=== PATIENT | male | born 1985 | race Caucasian/White ===

== ENCOUNTER 2019-03-22 16:36 | Emergency (ER) | payer OTHER ==
[~2019-03-22] VITALS: Ht 172.7 cm; Wt 77.1 kg
--- NOTE | 2019-03-22 16:41 | NUR ---
ED Nurse Note: Pt PAUL from [facility], under custody for medical clearance. c/o lower back pain x " a coupld of days". Pain 5/10 gurjit. Will cont to monitor.
[2019-03-22 16:42] VITALS: BP 136/82
--- NOTE | 2019-03-22 17:22 | Emergency Room Report ---
History of Present Illness General Chief Complaint: Medical Clearance Source: Patient Present Illness HPI This patient is brought in for clearance for incarceration. He is in custody of [place] police department. He is here because he complained of back pain. The police report he is walking around normally. He states he has chronic back pain. He also says he would like to talk to a psychologist because he is very upset. There were no injuries that the police report. The patient is very upset about the situation stating that he is on the streets and trying to survive. He states the police keep arresting him. He states he just got out of [facility] about a week ago. Allergies: Coded Allergies: No Known Allergies (Unverified , 03/22/19) Patient History Past Medical History: other - chronic pain Social History: Reports: drug use Reviewed Nursing Documentation: PMH: Agreed; PSxH: Agreed Nursing Documentation-PM Past Medical History: No Stated History Review of Systems All Other Systems: negative except mentioned in HPI Physical Exam Vital Signs Date Time Temp Pulse Resp B/P (MAP) Pulse Ox O2 Delivery O2 Flow Rate FiO2 03/22/19 16:38 98.8 88 18 136/82 (100) 98 Room Air Sp02 EP Interpretation: reviewed, normal General Appearance: no apparent distress, alert, GCS 15, non-toxic Head: normocephalic, atraumatic Eyes: bilateral eye normal inspection ENT: hearing grossly normal, normal pharynx, no angioedema, normal voice Neck: normal inspection Respiratory: no respiratory distress, no retraction, no accessory muscle use, speaking full sentences Cardiovascular #1: regular rate, rhythm, no edema Gastrointestinal: normal inspection Rectal: deferred Musculoskeletal: normal inspection, normal range of motion, non-tender Neurologic: alert, oriented x3, responsive, motor strength/tone normal, sensory intact, speech normal Psychiatric: judgement/insight normal, memory normal, mood/affect normal, no suicidal/homicidal ideation, anxious Medical Decision Making Diagnostic Impression: Primary Impression: Medical clearance for incarceration ER Course This patient's complaints are chronic in nature. The patient has chronic back pain. He is primarily agitated and frustrated that he is being incarcerated. He does not claim suicidal or homicidal ideation at this time. He has not on a 5150. I do not feel that this patient needs any further evaluation in the emergency department. He is cleared for evaluation at [facility]. Last Vital Signs Date Time Temp Pulse Resp B/P (MAP) Pulse Ox O2 Delivery O2 Flow Rate FiO2 03/22/19 16:42 98.8 85 18 136/82 98 Room Air Disposition: D/C TO LAW ENFORCEMENT IN CUST Condition: Stable Scripts No Active Prescriptions or Reported Meds Viviana Nina DO Mar 22, 2019 17:22
[2019-03-22 17:36] VITALS: BP 136/82
--- NOTE | 2019-03-22 17:37 | NUR ---
ER DISCHARGE NOTE: Patient is cleared to be discharged per ERMD with [employer], pt is aox4, on room air, with stable vital signs. pt id band removed. pt is able to ambulate with steady gait. pt took all belongings.
== END 2019-03-22 17:36 ==
LOC: EDBD 16:36 → EMR 17:16
DX: M54.9 Dorsalgia, unspecified (principal); G89.29 Other chronic pain; R45.1 Restlessness and agitation
CPT/HCPCS: 99282

== ENCOUNTER 2019-04-04 09:18 | Emergency (ER) | payer OTHER, SELFPAY ==
[~2019-04-04] VITALS: Ht 175.3 cm; Wt 77.1 kg
[2019-04-04 09:30] VITALS: BP 101/66
--- NOTE | 2019-04-04 09:33 | NUR ---
ED Nurse Note: pt brought by ambulance with MERLIN pitt for medical clearance. pt c/o right shoulder pain due to fall injury 3 days ago and chronic lower back pain. no limited ROM noted. no swelling or color chages noted. pt on handcuff with officer Darek #[id number]. AAo x4. respirations even and non-labored noted. will wait for the further order.
[2019-04-04] MEDS ORDERED: Tylenol #3 tab (300mg/30mg) PO ONE (09:45)
--- NOTE | 2019-04-04 10:09 | NUR ---
ED Nurse Note: pt went down for x-ray with officers by carmelita.
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
[2019-04-04] MEDS ORDERED: Ketorolac 30mg Inj IM ONE (11:45)
--- NOTE | 2019-04-04 12:00 | NUR ---
ED Nurse Note: per pt, currently live with girlfriend. denies to provide address.
[2019-04-04] MEDS ORDERED: IBUPROFEN600 MG ORAL (12:08)
[2019-04-04] MEDS ORDERED: LIDODERM700 M1 TOPIC (12:08)
[2019-04-04] MEDS ORDERED: ROBAXIN-750750 MG PO (12:08)
[2019-04-04 12:13] VITALS: BP 100/75
--- NOTE | 2019-04-04 12:15 | NUR ---
ER DISCHARGE NOTE: Patient is cleared to be discharged per ERMD with [facility] pitt, pt is aox4, on room air, with stable vital signs. pt was given dc and prescription instructions, pt was able to verbalize understanding, pt id band removed. pt is able to ambulate with steady gait. pt took all belongings.
--- NOTE | 2019-04-04 12:23 | Diagnostic Imaging Report ---
Indication: Back pain Comparison: None Findings: 2 views of the thoracic spine were obtained. Normal alignment is demonstrated. There is mild generalized loss of height of some of the midthoracic vertebral bodies likely degenerative in nature. The posterior elements including the facets are unremarkable. Soft tissues are unremarkable. Impression: No acute injury appreciated.
--- NOTE | 2019-04-04 12:23 | Diagnostic Imaging Report ---
Indication: Back pain Comparison: None Findings: 3 views of the lumbar spine were obtained. No acute fracture or malalignment is identified. Vertebral body heights and disk spaces are relatively well maintained. There is mild narrowing of the L4-5 disc. Posterior elements are unremarkable. Impression: No acute findings. Mild degenerative disc disease L4-5
--- NOTE | 2019-04-04 12:24 | Diagnostic Imaging Report ---
Indication: Right shoulder pain COMPARISON: None Findings: 3 views of the right shoulder were obtained. No acute fractures, malalignment, erosions or periostitis are identified. Soft tissues are unremarkable. Impression: Negative for acute injury
== END 2019-04-04 12:15 ==
LOC: EDBD 09:18 → EMR 09:42
DX: S40.011A Contusion of right shoulder, initial encounter (principal); W22.01XA Walked into wall, initial encounter; Y93.55 Activity, bike riding; Y92.9 Unspecified place or not applicable; M54.5 Low back pain
CPT/HCPCS: 29105; 72020; 72070; 73030; 99283; J1885